=== PATIENT | female | born 1965 | race African-American/Black ===

== ENCOUNTER 2021-03-03 21:59 | Emergency (ER) | payer BC ==
[2021-03-03 22:05] VITALS: BP 167/95; PULSE 98; TEMP 97.5; BMI 35.4
[2021-03-03] MEDS ORDERED: ACETAMINOPHEN 325 MG TABLET (FP) PO ONE (22:28)
[2021-03-03] MEDS ORDERED: BACITRACIN 15 GM TUBE TOPICAL OINTMENT TP ONE (22:28)
[2021-03-03] MEDS ORDERED: ACETAMINOPHEN 325 MG TABLET (FP) ONE (22:32)
[2021-03-03] MEDS ORDERED: BACITRACIN 0.9 GM PACKET ONE (22:33)
== END 2021-03-03 22:52 | disposition home or self-care (01) ==
LOC: JER 21:59
DX: T25.122A Burn of first degree of left foot, initial encounter (principal)
CPT/HCPCS: 99283-25

== ENCOUNTER 2022-08-28 04:18 | Day surgery (SDC) | payer BC ==
[2022-08-27 07:15] VITALS: BMI 34.4
[2022-08-28] MEDS ORDERED: KETAMINE HCL 500 MG/10 ML VIAL ONE (07:10)
[2022-08-28 08:47] VITALS: TEMP 98
[2022-08-28 08:54] VITALS: RESP 18
[2022-08-28 09:25] VITALS: BP 120/59; PULSE 88
== END 2022-08-28 09:27 | disposition home or self-care (01) ==
LOC: JASU-ENDO 04:18
PROVIDERS: ATTEND Internal Medicine Gastroenterology
PROC: 0DJD8ZZ Inspection of Lower Intestinal Tract, Via Natural or Artificial Opening Endoscopic (ICD-10-PCS; principal; 2022-08-28 08:00)
DX: Z12.11 Encounter for screening for malignant neoplasm of colon (principal); K57.30 Diverticulosis of large intestine without perforation or abscess without bleeding; K64.8 Other hemorrhoids; K63.89 Other specified diseases of intestine; Z86.010 Personal history of colon polyps